=== PATIENT | male | born 1990 | race African-American/Black ===

== ENCOUNTER 2017-01-10 09:00 | Emergency (ER) | payer OTHER ==
[~2017-01-10] VITALS: Ht 185.4 cm; Wt 68.0 kg
[~2017-01-10 09:00] MED LIST: DOXY100T PO; SULF-154 PO; Z.0.NO CURRENT MEDS
[2017-01-10 09:03] VITALS: BP 136/70; PULSE 77; RESP 15; TEMP 98.2; O2SAT 98
[2017-01-10] MEDS ORDERED: INVEGA (09:12)
--- NOTE | 2017-01-10 09:25 | PD ---
HPI Chief Complaint: ENT Complaint Time Seen by Provider: 09:11 Travel History International Travel<30 days: No Contact w/Intl Traveler<30days: No Traveled to known affect area: No History of Present Illness HPI 26-year-old male here with complaint of ear pain, swelling. For the last day patient has had pain and swelling in the posterior aspect of the right ear/ earlobe. No drainage, fevers, change in hearing. No headache. PFSH Past Medical History Diabetes: No Diminished Hearing: No Psychiatric: Yes (psychosis) Schizophrenia: Yes Social History Alcohol Use: Yes (OCCASIONAL) Tobacco Use: No Substance Use: Yes Allergies-Medications (Allergen,Severity, Reaction): Coded Allergies: No Known Allergies (Unverified , 01/10/17) Reported Meds & Prescriptions Reported Meds & Active Scripts Active Reported [invega injection] Review of Systems Except as stated in HPI: all other systems reviewed are Neg Physical Exam Narrative GENERAL: Well-appearing male in no acute distress SKIN: Focused skin assessment warm/dry. HEAD: Normocephalic. EYES: No scleral icterus. No injection or drainage. ENT: No nasal bleeding or discharge. Mucous membranes pink and moist. Right posterior ear lobe with fluctuant minimally erythematous 1.5 x 1.5 cm lesion consistent with abscess versus cyst NECK: Supple with right cervical lymphadenopathy CARDIOVASCULAR: Regular rate and rhythm. RESPIRATORY: No accessory muscle use. MUSCULOSKELETAL: Normal gait NEUROLOGICAL: Awake and alert. Normal speech. PSYCHIATRIC: Appropriate mood and affect; insight and judgment normal. Data Data Last Documented VS Vital Signs Date Time Temp Pulse Resp B/P Pulse Ox O2 Delivery O2 Flow Rate FiO2 01/10/17 09:13 77 16 01/10/17 09:03 98.2 136/70 98 MDM Medical Decision Making Medical Screen Exam Complete: Yes Emergency Medical Condition: Yes Medical Record Reviewed: Yes Differential Diagnosis 26-year-old male with right ear pain. Exam is consistent with abscess versus cyst to the right posterior ear lobe Narrative Course I&D performed, patient tolerated procedure well Procedures Procedure Narrative INCISION AND DRAINAGE OF ABSCESS: The area was prepped and was sterilely draped. A subcutaneous wheal of 1 % Xylocaine without epinephrine with a total number 6 mL was used to anesthetize the area. The area was properly anesthetized. A number 11 blade scalpel was used to make a 1-cm incision across the area of the abscess. The abscess was drained an irrigated with normal saline. Quarter inch iodoform packing was placed in the wound. Sterile dressing applied. Patient advised to have packing removed in two days. Diagnosis Primary Impression: Abscess of right earlobe Referrals: Primary Care Physician as needed Additional Instructions: You may remove packing in 2 days. Med/Other Pt SpecificInfo: No Change to Meds Disposition: 01 DISCHARGE HOME Condition: Stable Mitali Clinton MD Jan 10, 2017 09:25
== END 2017-01-10 09:38 | disposition home or self-care (01) ==
LOC: NEPD 09:00
DX: H60.01 Abscess of right external ear (principal); F20.9 Schizophrenia, unspecified
CPT/HCPCS: 10061